=== PATIENT | male | born 1975 | race Caucasian/White ===

== ENCOUNTER 2023-11-25 14:46 | Emergency (ER) | payer OTHER, SELFPAY ==
[2023-11-25 15:09] VITALS: BP 162/103; PULSE 71; RESP 18; TEMP 37.1; O2SAT 99; BMI 29.8
--- NOTE | 2023-11-25 15:14 | DI.RAD.S_ITS ---
PROCEDURE: XR HIP W PEL IF DONE LT 2V INDICATIONS: fall thursday/pain TECHNIQUE: AP pelvis with lateral view(s) of the left hip(s). COMPARISON: None. FINDINGS: Bones: No fractures or dislocations. Pelvic ring appears intact. No suspicious bony lesions. Soft tissues: The visualized bowel gas pattern is normal. No suspicious soft tissue calcifications. IMPRESSION: No visualized acute fracture or dislocation. However, if clinical concern and/or pain persist, short interval imaging followup in 7-10 days is recommended, as occult injury cannot be definitively excluded. Dictated by: Estephanie Fry M.D. on 11/25/2023 at 15:31 Approved by: Estephanie Fry M.D. on 11/25/2023 at 15:32
--- NOTE | 2023-11-25 17:07 | ED.LOWEXIN ---
HPI - Extremity Injury (Lower) General Chief Complaint: Extremity Injury, Lower Stated Complaint: poss dislocated hip Time Seen by Provider: 11/25/23 17:00 Source: patient Mode of arrival: Ambulatory History of Present Illness HPI Narrative: Patient is a 48-year-old male with no significant past medical history comes into the ED from home for evaluation of left hip pain, states that he fell over in obstacle during an obstacle course approximately a day ago, has had pain to his left hip/groin area, states that he has been able to stand walk and ambulate unassisted but has had persistent pain therefore decided come into the ED for further evaluation treatment. He denies any numbness weakness tingling down lower extremities denies any pain to his testicles, no other symptoms at this time. Related Data Previous Rx's Medication Instructions Recorded cyclobenzaprine 10 mg tablet 10 mg PO BEDTIME 7 days #7 tabs 11/25/23 Allergies Allergy/AdvReac Type Severity Reaction Status Date / Time No Known Drug Allergies Allergy Verified 11/25/23 15:09 Review of Systems Review of Systems Narrative: HEENT: Denies headache, eye drainage, eye irritation, head trauma, sore throat, voice change Cardiovascular: Denies any chest pain, palpitations, shortness of breath, tachycardia Respiratory: Denies any shortness of breath, cough, wheeze, stridor GI/: Denies any abdominal pain, nausea, vomiting, diarrhea, bright red blood per rectum, melanotic stools, urinary frequency, urinary retention, dysuria, hematuria MSK: Positive left hip pain Skin: Denies any rashes, lesions, discoloration Neuro: Denies any headache, lightheadedness, dizziness, fainting, weakness Psych: Denies SI/HI Patient History Social History Smoking Status: Never smoker Smoking Status: Never smoker alcohol intake frequency: a few times a week Substance Use Type: does not use Exam Narrative Exam Narrative: General: Cooperative, comfortable, well-developed, not in acute distress HEENT: Normocephalic, atraumatic, PERRLA, normal sclera, eyelids normal, Neck: Active full range of motion, atraumatic Chest: Normal to inspection, negative crepitus, no overlying erythema ecchymosis Respiratory: Normal respiratory effort, not in acute respiratory distress, clear to auscultation bilaterally negative cough, wheeze, tachypnea, rhonchi, rales Cardiology: Regular rate rhythm negative gallop, murmur, rubs GI/: Normal to inspection, soft, nonrigid, no tenderness to palpation, exam deferred MSK: Full range of active range of motion of all 4 extremities, atraumatic, patient able to stand bear weight ambulate unassisted here in the emergency department compartments soft nontender vascularly intact lower extremities Skin: No rashes lesions noted Neuro: Alert awake oriented x3, moves all 4 extremities spontaneously, cranial nerves intact, able to answer all questions appropriately follows commands appropriately Psych: Cooperative, negative suicidal or homicidal ideations Initial Vital Signs Initial Vital Signs: Vital Signs Temperature 98.8 F 11/25/23 15:09 Pulse Rate 71 11/25/23 15:09 Respiratory Rate 18 11/25/23 15:09 Blood Pressure 162/103 H 11/25/23 15:09 Pulse Oximetry 99 11/25/23 15:09 Oxygen Delivery Method Room Air 11/25/23 15:09 Course Orders Ordered: ED Orders 11/25/23 15:14 XR hip w pel if done LT 2V Stat Vital Signs Vital signs: Vital Signs - 8 hr 11/25/23 15:09 Temperature 98.8 F Pulse Rate 71 Respiratory Rate 18 Blood Pressure 162/103 H Pulse Oximetry 99 Oxygen Delivery Method Room Air MDM - Extremity Injury (Lower) Differential Diagnosis Differential diagnosis: Likely fracture of hip and other (Muscle strain) Condition is:: Well Controlled Medical Records Attestation: I reviewed the patient's medical records. MDM Narrative Medical decision making narrative: Patient is a 48-year-old male with no past medical history presented to the emergency department with left hip pain after mechanical trip and fall a day ago. Patient without any focal deficits no saddle paresthesias patient is able to stand bear weight ambulate unassisted here in the emergency department. Injury most likely strain/sprain of the left hip. Patient will be sent home with muscle relaxers and anti-inflammatories informed to follow up with PCP, patient understands agrees with this and is safe for discharge home with outpatient follow-up Discharge Plan Departure Patient Disposition: Home Clinical Impression: Acute hip pain Qualifiers: Laterality: left Qualified Code(s): M25.552 - Pain in left hip Instructions: Cyclobenzaprine Prescriptions: New cyclobenzaprine 10 mg tablet 10 mg PO BEDTIME 7 Days Qty: 7 0RF Stand Alone Forms: Patient Portal/API
== END 2023-11-25 17:13 | disposition home or self-care (01) ==
PROVIDERS: Emergency Provider Student in an Organized Health Care Education/Training Program
DX: M25.552 Pain in left hip (principal)
CPT/HCPCS: 73502; 99281; 99283